=== PATIENT | male | born 1935 ===

== ENCOUNTER → 2017-09-17 | Outpatient (CLI) | payer MEDICARE ==
[~2017-09-17] MED LIST: ASPI325; CALCIUM; IPRA.03NI; MULTIVITAMINS; NASACORT10.8 ML; OCUVITE EYE +1 EACH; OMEP20ER; Quinapril HCl10 MG
== END | disposition home or self-care (01) ==
LOC: LAB SHORT 11:03 → PLD 11:03
DX: D03.8 Melanoma in situ of other sites (principal)
CPT/HCPCS: 88305

== ENCOUNTER → 2019-07-20 | Outpatient (CLI) | payer MEDICARE | END | disposition home or self-care (01) | LOC: PLD 11:12 → LAB SHORT 11:12 | DX: C44.41 Basal cell carcinoma of skin of scalp and neck (principal) | CPT/HCPCS: 88305 ==

== ENCOUNTER 2021-03-05 13:13 | Day surgery (SDC) | payer MEDICARE, BC ==
[~2021-03-05 13:13] MED LIST changes: +ALBU90OI; +AMLODIPINE-ATO1 EACH; +FLONASE ALLERG9.9 ML
--- NOTE | 2021-03-05 14:40 | NUR ---
03/05/21 1440 NANCI,SHERLEY PT POSITIONED LEFT LATERAL, RIGHT SIDE UP.
--- NOTE | 2021-03-05 16:42 | NUR ---
03/05/21 1642 CHANDAN TINEO TRAMADOL 50MG PO WAS GIVEN AT 1630. EVANGELINARN
== END 2021-03-05 17:10 | disposition home or self-care (01) ==
LOC: ORSCSDS 13:13
PROVIDERS: Orthopaedic Surgery
PROC: 0LMJ0ZZ Reattachment of Right Hip Tendon, Open Approach (ICD-10-PCS; 2021-03-05)
PROC: 0JQL0ZZ Repair Right Upper Leg Subcutaneous Tissue and Fascia, Open Approach (ICD-10-PCS; principal; 2021-03-05 14:30)
DX: S76.301A Unspecified injury of muscle, fascia and tendon of the posterior muscle group at thigh level, right thigh, initial encounter (principal); M76.01 Gluteal tendinitis, right hip; M70.61 Trochanteric bursitis, right hip; K21.9 Gastro-esophageal reflux disease without esophagitis; J45.909 Unspecified asthma, uncomplicated; I10 Essential (primary) hypertension; Z79.899 Other long term (current) drug therapy; Z79.82 Long term (current) use of aspirin; Z87.891 Personal history of nicotine dependence
CPT/HCPCS: A9270; C1713; J0171; J0690; J0735; J1100; J1885; J2370; J2405; J2704; J2795; J3010